=== PATIENT | female | born 1950 | race Caucasian/White ===

== ENCOUNTER 2017-05-12 07:06 | Emergency (ER) | payer OTHER ==
[~2017-05-12 07:06] MED LIST: ASPIR 8181 MG PO; ATENOLOL25 MG; BUS10 PO; GLU10 PO; HYD25 PO; INSULIN; LISINOPRIL1 POW; MECLIZINE PO; METFORMIN500 MG PO; MOT800 PO; NAP500 PO; SIMVASTATIN PO; ZES10 PO
[2017-05-12 08:17] LABS: microscopic required? YES; urine erythrocyte NEGATIVE (NEGATIVE)
[2017-05-12 11:43] VITALS: BP 193/99
== END 2017-05-12 11:43 | disposition home or self-care (01) ==
LOC: ED 07:06
PROVIDERS: Emergency Medicine
DX: M54.5 Low back pain (principal); G43.909 Migraine, unspecified, not intractable, without status migrainosus
CPT/HCPCS: J1885; J3010; J3030; Q0162

== ENCOUNTER 2017-07-19 02:21 | Emergency (ER) | payer OTHER ==
[~2017-07-19] VITALS: Ht 157.5 cm; Wt 64.2 kg
[2017-07-19 04:24] VITALS: BP 179/75
== END 2017-07-19 04:24 | disposition home or self-care (01) ==
LOC: ED 02:21
DX: G44.209 Tension-type headache, unspecified, not intractable (principal); M62.830 Muscle spasm of back; I10 Essential (primary) hypertension; E11.9 Type 2 diabetes mellitus without complications; M19.90 Unspecified osteoarthritis, unspecified site; F41.9 Anxiety disorder, unspecified; E78.5 Hyperlipidemia, unspecified; Z90.710 Acquired absence of both cervix and uterus
CPT/HCPCS: 20552; J1885; J2001

== ENCOUNTER 2017-10-31 20:32 | Emergency (ER) | payer OTHER ==
[~2017-10-31] VITALS: Ht 157.5 cm; Wt 59.0 kg
[2017-10-31 22:53] VITALS: BP 193/72
== END 2017-10-31 22:53 | disposition home or self-care (01) ==
LOC: ED 20:32
DX: S29.012A Strain of muscle and tendon of back wall of thorax, initial encounter (principal); E78.00 Pure hypercholesterolemia, unspecified; I10 Essential (primary) hypertension; E11.9 Type 2 diabetes mellitus without complications; X58.XXXA Exposure to other specified factors, initial encounter; Y93.89 Activity, other specified; Y92.89 Other specified places as the place of occurrence of the external cause; Y99.8 Other external cause status
CPT/HCPCS: J3010; Q0162

== ENCOUNTER 2018-01-21 12:18 | Inpatient (IN) | payer OTHER ==
[~2018-01-21] VITALS: Ht 160 cm; Wt 56.7 kg
[2018-01-21 13:45] LABS: BASOPHIL % 0.4 % (0-2); PLATELET COUNT 299 x10^3mcL (130-400); RED CELL DISTRIBUTION WIDTH 13.8 % (11.5-14.5)
[2018-01-21 15:55] LABS: CALCIUM 9.3 mg/dL (8.5-10.1); CHLORIDE SERUM 98 mmol/L (98-107); GFR1 59 mL/min; GLUCOSE SERUM 151 mg/dL (74-106); SODIUM SERUM 136 mmol/L (136-145)
[2018-01-21 16:00] LABS: ALBUMIN 4.1 g/dL (3.4-5.0); ALKALINE PHOSPHATASE 91 U/L (46-116); ALT/SGPT 21 U/L (14-59); AST/SGOT 22 U/L (15-37); BILIRUBIN TOTAL 0.37 mg/dL (0.20-1.00); TOTAL PROTEIN, SERUM 7.8 g/dL (6.4-8.2)
[2018-01-21] MEDS ORDERED: ATENOLOL100 MG PO (16:49)
[2018-01-21] MEDS ORDERED: ZESTRIL20 MG PO (16:49)
[2018-01-21] MEDS ORDERED: TRAMADOL HCL50 MG PO (16:49)
[2018-01-21] MEDS ORDERED: BENAZEPRIL HYDR20 M1 PO (16:50)
[2018-01-21] MEDS ORDERED: NEU300 PO (16:50)
[2018-01-21] MEDS ORDERED: HYDROCHLOROTHIA25 MG PO (16:50)
[2018-01-21] MEDS ORDERED: SIMVASTATIN20 M1 PO (16:50)
[2018-01-21] MEDS ORDERED: LANTUS SOLOS100 U/M1 SQ (16:51)
[2018-01-21] MEDS ORDERED: HUMALOG KW100 UNIT/1 SQ (16:51)
[2018-01-21 17:48] LABS: T3 TOTAL 0.7 ng/mL
[2018-01-21 19:12] LABS: PHOSPHOROUS 3.6 mg/dL (2.5-4.9)
[2018-01-21 19:17] LABS: CHOLESTEROL/HDL RATIO 2.6
[2018-01-21 19:28] LABS: FREE T4 1.15 ng/dL (0.76-1.46); FREE THYROXINE INDEX 3.2 ug/dL (1.4-4.5); T4(THYROXINE) 8.8 ug/dL (4.7-13.3)
[2018-01-21 19:36] VITALS: BP 152/69
[2018-01-21 19:39] VITALS: Ht 160 cm; Wt 56.7 kg
[2018-01-21 21:42] VITALS: BP 140/48
[2018-01-22 06:04] VITALS: BP 188/64
[2018-01-22 06:18] LABS: BASOPHIL % 0.5 % (0-2); PLATELET COUNT 245 x10^3mcL (130-400); RED CELL DISTRIBUTION WIDTH 13.4 % (11.5-14.5)
[2018-01-22 06:19] LABS: CALCIUM 8.8 mg/dL (8.5-10.1); CARBON DIOXIDE 27.2 mmol/L (21-32); CREATININE SERUM 1.2 mg/dL (0.6-1.0); POTASSIUM SERUM 4.2 mmol/L (3.5-5.1)
[2018-01-22 11:33] VITALS: BP 151/48
[2018-01-22] MEDS ORDERED: LIDODERM51 TOP (13:47)
[2018-01-22 15:15] VITALS: BP 165/53
[2018-01-22 18:53] VITALS: BP 144/60
[2018-01-22 21:14] VITALS: BP 180/73
[2018-01-22 21:45] LABS: UA SPECIFIC GRAVITY 1.015 (1.005-1.035); microscopic required? YES; urine erythrocyte NEGATIVE (NEGATIVE)
[2018-01-22 21:53] LABS: AMPHETAMINE QUAL UR NONE DETECTED (NEG <=1000)
[2018-01-22 22:20] VITALS: BP 176/59
[2018-01-23] VITALS (7 sets, daily range): BP systolic 142–183; BP diastolic 48–64
[2018-01-23 08:41] LABS: BASOPHIL % 0.4 % (0-2); PLATELET COUNT 256 x10^3mcL (130-400); RED CELL DISTRIBUTION WIDTH 13.8 % (11.5-14.5)
[2018-01-23 09:27] LABS: CALCIUM 9.5 mg/dL (8.5-10.1); CARBON DIOXIDE 27.5 mmol/L (21-32); CHLORIDE SERUM 107 mmol/L (98-107); CREATININE SERUM 0.9 mg/dL (0.6-1.0); GFR1 > 60 mL/min; GLUCOSE SERUM 167 mg/dL (74-106); PHOSPHOROUS 2.5 mg/dL (2.5-4.9); POTASSIUM SERUM 4.5 mmol/L (3.5-5.1); SODIUM SERUM 142 mmol/L (136-145)
[2018-01-24] VITALS (7 sets, daily range): BP systolic 130–207; BP diastolic 55–85
[2018-01-24 07:22] LABS: CALCIUM 9.2 mg/dL (8.5-10.1); CARBON DIOXIDE 28.6 mmol/L (21-32); CHLORIDE SERUM 104 mmol/L (98-107); CREATININE SERUM 0.9 mg/dL (0.6-1.0); GFR1 > 60 mL/min; GLUCOSE SERUM 101 mg/dL (74-106); POTASSIUM SERUM 4.3 mmol/L (3.5-5.1); SODIUM SERUM 141 mmol/L (136-145)
[2018-01-24 08:02] LABS: BASOPHIL % 0.4 % (0-2); PLATELET COUNT 245 x10^3mcL (130-400)
[2018-01-25 06:13] LABS: BASOPHIL % 0.5 % (0-2); PLATELET COUNT 240 x10^3mcL (130-400); RED CELL DISTRIBUTION WIDTH 13.6 % (11.5-14.5)
[2018-01-25 06:20] VITALS: BP 167/59
[2018-01-25 06:43] LABS: CALCIUM 8.8 mg/dL (8.5-10.1); CARBON DIOXIDE 26.7 mmol/L (21-32); POTASSIUM SERUM 4.5 mmol/L (3.5-5.1)
[2018-01-25 09:05] VITALS: BP 138/47
[2018-01-25 16:13] VITALS: BP 174/73
[2018-01-25 21:32] VITALS: BP 136/56
[2018-01-25 21:58] VITALS: BP 156/62
[2018-01-26 06:01] VITALS: BP 155/60
[2018-01-26 06:50] LABS: BASOPHIL % 0.4 % (0-2); PLATELET COUNT 251 x10^3mcL (130-400); RED CELL DISTRIBUTION WIDTH 13.8 % (11.5-14.5)
[2018-01-26 07:22] LABS: CALCIUM 9.2 mg/dL (8.5-10.1); CARBON DIOXIDE 25.4 mmol/L (21-32); POTASSIUM SERUM 4.7 mmol/L (3.5-5.1)
[2018-01-26 08:59] VITALS: BP 176/59
[2018-01-26] MEDS ORDERED: LISINOPRIL10 MG PO (13:58)
[2018-01-26] MEDS ORDERED: LEV500 PO (16:48)
[2018-01-26 16:49] VITALS: BP 167/71
[2018-01-26] MEDS ORDERED: APR10 PO (17:13)
[2018-01-26] MEDS ORDERED: LEVEMIR100 U/M1 SQ (17:13)
[2018-01-26 17:35] VITALS: BP 145/71
== END 2018-01-26 18:34 | disposition home health service (06) | DRG 420 ==
LOC: ED 12:18 → DU 16:55 → MU 16:55 → DU 19:15 → MU 01-23 09:58 → DU 01-24 12:01 → MU 01-25 10:22
PROVIDERS: Emergency Medicine; Family Medicine
DX: E11.649 Type 2 diabetes mellitus with hypoglycemia without coma (principal); N17.0 Acute kidney failure with tubular necrosis; G93.41 Metabolic encephalopathy; E11.40 Type 2 diabetes mellitus with diabetic neuropathy, unspecified; R00.1 Bradycardia, unspecified; I10 Essential (primary) hypertension; E78.5 Hyperlipidemia, unspecified; M19.90 Unspecified osteoarthritis, unspecified site; E11.65 Type 2 diabetes mellitus with hyperglycemia; M54.89 Other dorsalgia; G89.29 Other chronic pain; Z90.710 Acquired absence of both cervix and uterus; Z79.4 Long term (current) use of insulin; Z79.82 Long term (current) use of aspirin
CPT/HCPCS: 83880; 84439; 97110-GP; 97116-GP; 97530-GP; G0480; J0360; J0461; J0696; J1815; J1885; J7030; J7042; Q0092

== ENCOUNTER 2018-07-25 16:37 | Inpatient (IN) | payer OTHER ==
[~2018-07-25] VITALS: Ht 160 cm; Wt 58.0 kg
[~2018-07-25 16:37] MED LIST changes: +APR10 PO; +ATENOLOL100 MG PO; +BENAZEPRIL HYDR20 M1 PO; +HUMALOG KW100 UNIT/1 SQ; +HYDROCHLOROTHIA25 MG PO; +LANTUS SOLOS100 U/M1 SQ; +LEV500 PO; +LEVEMIR100 U/M1 SQ; +LIDODERM51 TOP; +LISINOPRIL10 MG PO; +NEU300 PO; +SIMVASTATIN20 M1 PO; +TRAMADOL HCL50 MG PO; +ZESTRIL20 MG PO
[2018-07-25 16:39] VITALS: Ht 160 cm; Wt 58.0 kg
[2018-07-25 17:13] LABS: BASOPHIL % 0.6 % (0-2); PLATELET COUNT 293 x10^3mcL (130-400); RED CELL DISTRIBUTION WIDTH 13.4 % (11.5-14.5)
[2018-07-25 17:18] LABS: CALCIUM 9.7 mg/dL (8.5-10.1); CARBON DIOXIDE 27.5 mmol/L (21-32); CREATININE SERUM 1.1 mg/dL (0.6-1.0); POTASSIUM SERUM 4.4 mmol/L (3.5-5.1)
[2018-07-25 17:22] LABS: ALBUMIN 4.1 g/dL (3.4-5.0); BILIRUBIN TOTAL 0.4 mg/dL (0.20-1.00); TOTAL PROTEIN, SERUM 8.1 g/dL (6.4-8.2)
[2018-07-25 19:13] LABS: UA SPECIFIC GRAVITY >=1.030 (1.005-1.035); microscopic required? YES; urine erythrocyte 1+ (NEGATIVE)
[2018-07-25] MEDS ORDERED: LISINOPRIL20 MG PO (21:27)
[2018-07-25] MEDS ORDERED: DICLOFENAC SODI50 MG PO (21:31)
[2018-07-25 21:56] VITALS: BP 152/61
[2018-07-25 22:18] LABS: T3 TOTAL 0.87 ng/mL
[2018-07-25 22:21] LABS: FREE T4 1.17 ng/dL (0.76-1.46); FREE THYROXINE INDEX 2.8 ug/dL (1.4-4.5); T4(THYROXINE) 8.3 ug/dL (4.7-13.3)
[2018-07-25 22:34] LABS: MAGNESIUM 2.1 mg/dL (1.8-2.4); PHOSPHOROUS 3.6 mg/dL (2.5-4.9)
[2018-07-25 22:35] LABS: CHOLESTEROL/HDL RATIO 2.7
[2018-07-26 05:23] VITALS: BP 160/62
[2018-07-26 07:33] LABS: BASOPHIL % 0.3 % (0-2); PLATELET COUNT 285 x10^3mcL (130-400); RED CELL DISTRIBUTION WIDTH 12.4 % (11.5-14.5)
[2018-07-26 07:34] LABS: CARBON DIOXIDE 24.9 mmol/L (21-32); POTASSIUM SERUM 4.2 mmol/L (3.5-5.1)
[2018-07-26 08:53] VITALS: BP 134/44
[2018-07-26 10:27] LABS: AMPHETAMINE QUAL UR NONE DETECTED (See below)
[2018-07-26 13:39] VITALS: BP 103/61
[2018-07-26 17:18] VITALS: BP 145/57
[2018-07-26 20:32] VITALS: BP 134/61
[2018-07-27 05:53] VITALS: BP 165/72
[2018-07-27 06:10] VITALS: BP 140/70
[2018-07-27 07:10] LABS: BASOPHIL % 0.3 % (0-2); PLATELET COUNT 247 x10^3mcL (130-400); RED CELL DISTRIBUTION WIDTH 13.6 % (11.5-14.5)
[2018-07-27 07:17] LABS: CHLORIDE SERUM 110 mmol/L (98-107); CREATININE SERUM 0.9 mg/dL (0.6-1.0); GFR1 > 60 mL/min; GLUCOSE SERUM 176 mg/dL (74-106); MAGNESIUM 1.7 mg/dL (1.8-2.4); PHOSPHOROUS 3.7 mg/dL (2.5-4.9); POTASSIUM SERUM 4.5 mmol/L (3.5-5.1); SODIUM SERUM 146 mmol/L (136-145)
[2018-07-27 07:23] LABS: CALCIUM 8.7 mg/dL (8.5-10.1)
[2018-07-27 09:24] VITALS: BP 163/76
[2018-07-27] MEDS ORDERED: LIPI10 PO ×2 (10:31→11:59)
[2018-07-27] MEDS ORDERED: ZES20 PO (10:39)
[2018-07-27] MEDS ORDERED: HYD25 PO (10:41)
[2018-07-27 12:39] VITALS: BP 164/56
== END 2018-07-27 13:20 | disposition home or self-care (01) | DRG 48 ==
LOC: ED 16:37 → DU 20:42
PROVIDERS: Emergency Medicine; Family Medicine; Internal Medicine
DX: G90.8 Other disorders of autonomic nervous system (principal); N17.0 Acute kidney failure with tubular necrosis; D68.69 Other thrombophilia; E11.51 Type 2 diabetes mellitus with diabetic peripheral angiopathy without gangrene; E11.65 Type 2 diabetes mellitus with hyperglycemia; R00.1 Bradycardia, unspecified; M19.90 Unspecified osteoarthritis, unspecified site; E78.00 Pure hypercholesterolemia, unspecified; R80.9 Proteinuria, unspecified; T44.7X5A Adverse effect of beta-adrenoreceptor antagonists, initial encounter; I10 Essential (primary) hypertension; Z79.4 Long term (current) use of insulin; Z68.23 Body mass index [BMI] 23.0-23.9, adult; Y92.018 Other place in single-family (private) house as the place of occurrence of the external cause; Z56.0 Unemployment, unspecified; Z82.49 Family history of ischemic heart disease and other diseases of the circulatory system
CPT/HCPCS: 83880; 84439; 97110-GP; 97116-GP; 97530-GP; J0461; J0780; J7030; Q0092

== ENCOUNTER 2018-08-27 03:07 | Emergency (ER) | payer OTHER ==
[~2018-08-27] VITALS: Ht 162.6 cm; Wt 62.6 kg
[~2018-08-27 03:07] MED LIST changes: +DICLOFENAC SODI50 MG PO; +LIPI10 PO; +LISINOPRIL20 MG PO; +ZES20 PO
[2018-08-27 03:16] VITALS: Ht 162.6 cm; Wt 62.6 kg
[2018-08-27 05:19] LABS: UA SPECIFIC GRAVITY <=1.005 (1.005-1.035); microscopic required? YES; urine erythrocyte TRACE (NEGATIVE)
[2018-08-27 05:36] VITALS: BP 196/83
== END 2018-08-27 06:04 | disposition home or self-care (01) ==
LOC: ED 03:07
PROVIDERS: Emergency Medicine
DX: S39.012A Strain of muscle, fascia and tendon of lower back, initial encounter (principal); I10 Essential (primary) hypertension; E11.9 Type 2 diabetes mellitus without complications; E78.00 Pure hypercholesterolemia, unspecified; M19.90 Unspecified osteoarthritis, unspecified site; X58.XXXA Exposure to other specified factors, initial encounter; Y93.89 Activity, other specified; Y92.89 Other specified places as the place of occurrence of the external cause; Y99.8 Other external cause status

== ENCOUNTER 2019-03-31 09:54 | Inpatient (IN) | payer OTHER ==
[~2019-03-31] VITALS: Ht 160 cm; Wt 60.0 kg
[2019-03-31 11:59] LABS: BASOPHIL % 0.2 % (0-2); PLATELET COUNT 297 x10^3mcL (130-400); RED CELL DISTRIBUTION WIDTH 13.9 % (11.5-14.5)
[2019-03-31 12:11] LABS: CALCIUM 8.1 mg/dL (8.5-10.1); CARBON DIOXIDE 28.2 mmol/L (21-32); CHLORIDE SERUM 101 mmol/L (98-107); CREATININE SERUM 1.2 mg/dL (0.6-1.0); GFR1 48 mL/min; GLUCOSE SERUM 412 mg/dL (74-106); POTASSIUM SERUM 4.3 mmol/L (3.5-5.1); SODIUM SERUM 136 mmol/L (136-145)
[2019-03-31 12:22] LABS: ALKALINE PHOSPHATASE 101 U/L (46-116); ALT/SGPT 26 U/L (14-59); AMYLASE 48 U/L (25-115); AST/SGOT 19 U/L (15-37); BILIRUBIN TOTAL 0.26 mg/dL (0.20-1.00); CHOLESTEROL 152 mg/dL (<200); HDL CHOLESTEROL 51 mg/dL (40-60); LIPASE 107 IU/L (73-393); T4(THYROXINE) 8.4 ug/dL (4.7-13.3); TOTAL PROTEIN, SERUM 6.4 g/dL (6.4-8.2)
[2019-03-31 12:24] LABS: ALBUMIN 3.1 g/dL (3.4-5.0)
[2019-03-31 12:55] LABS: AMPHETAMINE QUAL UR NONE DETECTED (See below)
[2019-03-31 13:08] LABS: microscopic required? YES; urine erythrocyte TRACE (NEGATIVE)
[2019-03-31] MEDS ORDERED: ATORVASTATIN CA10 M1 PO (13:41)
[2019-03-31] MEDS ORDERED: NEURONTIN800 MG PO (13:41)
[2019-03-31] MEDS ORDERED: RELION HUMUL100 U/ML SC (13:42)
[2019-03-31] MEDS ORDERED: LANTUS SOLOS100 U/M1 SC (13:43)
[2019-03-31 14:58] VITALS: BP 157/49
[2019-03-31 15:04] VITALS: Ht 160 cm; Wt 60.0 kg
[2019-03-31 21:25] VITALS: BP 185/57
[2019-03-31 21:43] VITALS: BP 147/54
[2019-04-01] VITALS (8 sets, daily range): BP systolic 144–183; BP diastolic 56–78
[2019-04-01] MEDS ORDERED: LIDODERM51 TOP (19:25)
[2019-04-01] MEDS ORDERED: EPZICOM1 TAB (19:25)
[2019-04-02 04:47] VITALS: BP 187/76
[2019-04-02 06:22] LABS: BASOPHIL % 0.7 % (0-2); PLATELET COUNT 270 x10^3mcL (130-400); RED CELL DISTRIBUTION WIDTH 14.2 % (11.5-14.5)
[2019-04-02 06:31] LABS: CALCIUM 8.7 mg/dL (8.5-10.1); POTASSIUM SERUM 4.3 mmol/L (3.5-5.1)
[2019-04-02 09:44] VITALS: BP 138/51
[2019-04-02 12:54] VITALS: BP 138/51
== END 2019-04-02 13:24 | disposition home or self-care (01) | DRG 254 ==
LOC: ED 09:54 → MU 13:29
PROVIDERS: Emergency Medicine; ADMIT Internal Medicine
DX: K92.1 Melena (principal); E44.0 Moderate protein-calorie malnutrition; E11.65 Type 2 diabetes mellitus with hyperglycemia; R11.0 Nausea; R19.7 Diarrhea, unspecified; D50.0 Iron deficiency anemia secondary to blood loss (chronic); I10 Essential (primary) hypertension; E78.00 Pure hypercholesterolemia, unspecified; Z83.3 Family history of diabetes mellitus; Z79.899 Other long term (current) drug therapy; Z79.4 Long term (current) use of insulin; Z53.29 Procedure and treatment not carried out because of patient's decision for other reasons
CPT/HCPCS: 36600; 82962; 83880; C9113; G0480; J0360; J0696; J1815; J7030; Q0092

== ENCOUNTER 2019-12-22 15:48 | Emergency (ER) | payer OTHER ==
[~2019-12-22] VITALS: Ht 162.6 cm; Wt 56.7 kg
[~2019-12-22 15:48] MED LIST changes: +ATORVASTATIN CA10 M1 PO; +EPZICOM1 TAB; +LANTUS SOLOS100 U/M1 SC; +NEURONTIN800 MG PO; +RELION HUMUL100 U/ML SC
[2019-12-22 15:52] VITALS: Ht 162.6 cm; Wt 56.7 kg
[2019-12-22 17:28] LABS: CALCIUM 9.9 mg/dL (8.5-10.1); CARBON DIOXIDE 26.7 mmol/L (21-32); CREATININE SERUM 1.4 mg/dL (0.6-1.0); POTASSIUM SERUM 3.3 mmol/L (3.5-5.1)
[2019-12-22 17:33] LABS: ALBUMIN 4.1 g/dL (3.4-5.0); BILIRUBIN TOTAL 0.3 mg/dL (0.20-1.00); TOTAL PROTEIN, SERUM 7.4 g/dL (6.4-8.2)
[2019-12-22 17:38] LABS: BASOPHIL % 0.1 % (0-2); PLATELET COUNT 306 x10^3mcL (130-400)
[2019-12-22 20:04] LABS: UA SPECIFIC GRAVITY >=1.030 (1.005-1.035); microscopic required? YES; urine erythrocyte NEGATIVE (NEGATIVE)
[2019-12-22 20:47] VITALS: BP 145/50
== END 2019-12-22 20:47 | disposition home or self-care (01) ==
LOC: ED 15:48 → DU 19:36 → ED 19:36
PROVIDERS: Emergency Medicine
DX: E87.6 Hypokalemia (principal); E11.9 Type 2 diabetes mellitus without complications; D64.9 Anemia, unspecified; I10 Essential (primary) hypertension; E78.00 Pure hypercholesterolemia, unspecified
CPT/HCPCS: 82962; G0480; J1885; J7040